=== PATIENT | male | born 1975 | race Caucasian/White ===

== ENCOUNTER 2021-10-06 02:47 | Emergency (ER) | payer SELFPAY ==
[~2021-10-06] VITALS: Ht 203.2 cm; Wt 165.0 kg
[2021-10-06 02:55] VITALS: BP 172/88
== END 2021-10-06 03:29 | disposition left against medical advice (07) ==
LOC: ER 02:47
DX: R07.9 Chest pain, unspecified (principal); F12.10 Cannabis abuse, uncomplicated; F41.9 Anxiety disorder, unspecified
CPT/HCPCS: 93005; 99283